=== PATIENT | female | born 1995 | race American Indian/Alaskan Native ===

== ENCOUNTER 2017-07-11 15:53 | Inpatient (IN) | payer MEDICAID, OTHER ==
[2017-07-11 15:54] VITALS: BMI 28.8
[2017-07-11] MEDS ORDERED: Sodium Chloride 0.9% 500 ML IV STA (16:26)
[2017-07-11 17:03] LABS: BASO # 0.03 K/mm3 (0.0-2.0); BASO % 0.8 % (0.0-3.0); EOS % 0.8 % (1.5-5.0); GRAN # 1.5 (1.4-6.5); GRAN % 40.7 % (50.0-68.0); HEMATOCRIT 37.7 % (36.0-48.0); LYMPH # 1.9 (1.2-3.4); LYMPH % 50.9 % (22.0-35.0); MEAN CELL VOLUME 85.7 fl (80.0-105.0); MEAN CORPUSCULAR HEMOGLOBIN 28.4 pg (25.0-35.0); MEAN CORPUSCULAR HGB CONC 33.2 g/dl (31.0-37.0); MEAN PLATELET VOLUME 9.7 fl (7.0-11.0); MONO # 0.3 (0.1-0.6); MONO % 6.8 % (1.0-6.0); RED CELL DISTRIBUTION WIDTH 12.6 % (11.5-14.5); WHITE BLOOD COUNT 3.7 10^3/ul (4.5-11.0)
[2017-07-11 17:09] LABS: PH,URINE 6.5 (4.7-8.0); URINE APPEARANCE CLEAR (CLEAR); URINE BILIRUBIN NEGATIVE (NEGATIVE); URINE BLOOD NEGATIVE (NEGATIVE); URINE COLOR YELLOW (YELLOW); URINE GLUCOSE (UA) NEGATIVE (NEGATIVE); URINE KETONE TRACE mg/dL (NEGATIVE); URINE LEUKOCYTE ESTERASE NEGATIVE Leu/uL (NEGATIVE); URINE PROTEIN NEGATIVE mg/dL (<30 mg/dL); URINE UROBILINOGEN 0.2 E.U./dL (<1 E.U./dL)
[2017-07-11 17:10] LABS: ALB/GLOB RATIO 1.2 (1.1-1.8); ALKALINE PHOSPHATASE 61 U/L (38-126); ALT/SGPT 20 U/L (7-56); AST/SGOT 22 U/L (14-36); BILIRUBIN,TOTAL 0.4 mg/dL (0.2-1.3); BLOOD UREA NITROGEN 10 mg/dL (7-21); CALCIUM 9.6 mg/dL (8.4-10.5); CARBON DIOXIDE 26 mmol/L (21-33); CHLORIDE 108 mmol/L (98-107); GFR AFRICAN-AMERICAN > 60; GLUCOSE,RANDOM 88 mg/dL (70-110); POTASSIUM 3.8 mmol/L (3.6-5.0); SODIUM 143 mmol/L (132-148)
[2017-07-11 17:28] VITALS: O2SAT 100
--- NOTE | 2017-07-11 20:27 | ED PDOC ---
Arrival/HPI - General Chief Complaint: Psychiatric Evaluation Time Seen by Provider: 07/11/17 16:00 Historian: Patient - History of Present Illness Narrative History of Present Illness (Text): 07/11/17 20:19 21-year-old female presents today with depression and suicidal ideation. Patient states she took a handful approximately 14-20 220 mg naproxen in an attempt to end her life. Patient states she's been very depressed for a long time. She denies fevers or chills. No chest pain or shortness of breath. Denies abdominal pain. No nausea or vomiting. No dizziness or weakness. Denies urinary symptoms. Denies . Patient states she occasionally will take Motrin at home for pain. Patient states she did not take any Motrin today. Patient states he only medication that she took was the naproxen. Time/Duration: 1/2 hour Past Medical History - Provider Review Nursing Documentation Reviewed: Yes - Travel History Have you recently traveled outside [place] w/in the past 3 mons?: No - Cardiac Hx Cardiac Disorders: No - Pulmonary Hx Respiratory Disorders: No - Neurological Hx Neurological Disorder: No - HEENT Hx HEENT Disorder: No - Renal Hx Renal Disorder: No - Hematological/Oncological Hx Blood Disorders: No - Integumentary Hx Dermatological Disorder: No - Musculoskeletal/Rheumatological Hx Musculoskeletal Disorders: Yes Hx Herniated Disk: Yes (L4 & L5) - Gastrointestinal Hx Gastrointestinal Disorders: No - Genitourinary/Gynecological Hx Genitourinary Disorders: No - Psychiatric Hx Substance Use: No - Suicidal Assessment Suicide Risk Precautions: Suicide Precautions Family/Social History - Physician Review Nursing Documentation Reviewed: Yes Family/Social History: Unknown Family HX Smoking Status: Never Smoked Hx Alcohol Use: No Hx Substance Use: No Allergies/Home Meds Allergies/Adverse Reactions: Allergies nut - unspecified Allergy (Verified 07/11/17 16:28) SWELLING Home Medications: Home Meds Medication Instructions Recorded Confirmed Acetaminophen [Tylenol 325mg tab] 325 mg PO Q6 PRN 07/11/17 07/11/17 Ibuprofen [Motrin Tab] 800 mg PO Q6 PRN 07/11/17 07/11/17 Review of Systems - Review of Systems Constitutional: absent: Fatigue, Fevers Respiratory: absent: SOB, Cough Cardiovascular: absent: Chest Pain, Palpitations Gastrointestinal: absent: Abdominal Pain, Nausea, Vomiting Genitourinary Female: absent: Dysuria, Frequency, Hematuria Musculoskeletal: absent: Arthralgias, Back Pain, Neck Pain Skin: absent: Rash, Pruritis Neurological: absent: Headache, Dizziness Psychiatric: Depression, Suicidal Ideation. absent: Anxiety Physical Exam Vital Signs Reviewed: Yes Vital Signs Temp Pulse Resp BP Pulse Ox 07/11/17 17:28 56 L 13 129/71 100 07/11/17 16:17 98.6 F 127 H 17 109/78 98 Temperature: Afebrile Blood Pressure: Normal Pulse: Tachycardic Respiratory Rate: Normal Appearance: Positive for: Well-Appearing, Non-Toxic, Comfortable Pain Distress: None Mental Status: Positive for: Alert and Oriented X 3 - Systems Exam Head: Present: Atraumatic Mouth: Present: Moist Mucous Membranes Neck: Present: Normal Range of Motion Respiratory/Chest: Present: Clear to Auscultation, Good Air Exchange. No: Respiratory Distress, Accessory Muscle Use Cardiovascular: Present: Regular Rate and Rhythm, Normal S1, S2. No: Murmurs Abdomen: Present: Normal Bowel Sounds. No: Tenderness, Distention, Peritoneal Signs, Rebound, Guarding Back: Present: Normal Inspection Upper Extremity: Present: Normal ROM, NORMAL PULSES, Neurovascularly Intact, Other (superficial abrasions to left volar wrist) Neurological: Present: GCS=15 Skin: Present: Warm, Dry, Normal Color. No: Rashes Psychiatric: Present: Alert, Oriented x 3 Medical Decision Making ED Course and Treatment: 07/11/17 20:29 Patient is nontoxic well-appearing in no distress vital signs are stable. poison control contacted; supportive measures. pt placed on 1:1 for Suicidal ideation. CBC WNL CMP WNL Tylenol WNL Salicylate WNL Alcohol level WNL Urine drug screen + marijuana UA; wnl cxr: wnl ekg sinus bradycardia with sinus arrhythmia at 59 b/m no st elevations pt has been observed in the Er; no GI symptoms, no complaints. no cp or sob. no dizziness or weakness. abrasions to left forearm have been cleaned, bacitracin and dressing applied. pt is medically cleared for PES evaluation Patient was seen and evaluated by PES screener: antelmo pt signed voluntarily for Psych admission Impression; major depression admit to behavioral health floor - Lab Interpretations Lab Results: 07/11/17 16:30 07/11/17 16:30 Lab Results 07/11/17 16:45: Urine Opiates Screen Negative, Urine Methadone Screen Negative, Ur Barbiturates Screen Negative, Ur Phencyclidine Scrn Negative, Ur Amphetamines Screen Negative, U Benzodiazepines Scrn Negative, U Oth Cocaine Metabols Negative, U Cannabinoids Screen Positve 07/11/17 16:45: Urine Color Yellow, Urine Appearance Clear, Urine pH 6.5, Ur Specific [place] 1.025, Urine Protein Negative, Urine Glucose (UA) Negative, Urine Ketones Trace H, Urine Blood Negative, Urine Nitrate Negative, Urine Bilirubin Negative, Urine Urobilinogen 0.2, Ur Leukocyte Esterase Negative 07/11/17 16:30: Alcohol, Quantitative < 10 07/11/17 16:30: Salicylates < 1 L, Acetaminophen < 10.0 L 07/11/17 16:30: Sodium 143, Potassium 3.8, Chloride 108 H, Carbon Dioxide 26, Anion Gap 13, BUN 10, Creatinine 0.7, Est GFR ( Amer) > 60, Est GFR (Non- Af Amer) > 60, Random Glucose 88, Calcium 9.6, Total Bilirubin 0.4, AST 22, ALT 20, Alkaline Phosphatase 61, Total Creatine Kinase 84, Total Protein 8.0, Albumin 4.3, Globulin 3.7, Albumin/Globulin Ratio 1.2 07/11/17 16:30: WBC 3.7 L, RBC 4.40, Hgb 12.5, Hct 37.7, MCV 85.7, MCH 28.4, MCHC 33.2, RDW 12.6, Plt Count 284, MPV 9.7, Gran % 40.7 L, Lymph % (Auto) 50.9 H, [place] % (Auto) 6.8 H, Eos % (Auto) 0.8 L, Baso % (Auto) 0.8, Gran # 1.50, Lymph # 1.9, [place] # 0.3, Eos # 0.0, Baso # 0.03 - RAD Interpretation Radiology Orders: 07/11/17 16:27 CHEST PORTABLE [RAD] Stat - Medication Orders Current Medication Orders: Discontinued Medications Sodium Chloride (Sodium Chloride 0.9%) 500 mls @ 1,000 mls/hr IV .Q30M STA Stop: 07/11/17 16:55 Last Admin: 07/11/17 17:46 Dose: 1,000 mls/hr eMAR Start Stop Document 07/11/17 17:46 MR (Rec: 07/11/17 17:46 MR [id number]) Intravenous Solution Start Date 07/11/17 Start Time 17:46 End Date 07/11/17 End time 18:16 Total Infusion Time 30 Disposition/Present on Arrival - Present on Arrival Any Indicators Present on Arrival: No History of DVT/PE: No History of Uncontrolled Diabetes: No Urinary Catheter: No History of Decub. Ulcer: No History Surgical Site Infection Following: None - Disposition Have Diagnosis and Disposition been Completed?: Yes Diagnosis: Major depression Disposition: HOSPITALIZED Disposition Time: 21:34 Patient Plan: Admission Condition: FAIR Referrals: PCP,NO [Primary Care Provider] - Follow up with primary Forms: [employer] (Albanian)
[2017-07-11] MEDS ORDERED: Magnesium Hydroxide Susp 30 ml UD PO PRN (22:43)
[2017-07-11] MEDS ORDERED: Alum-Mag Hydrox-Simethicone Susp (30 mL) PO PRN (22:43)
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
[2017-07-12 07:51] LABS: GLUCOSE,RANDOM 85 mg/dL (70-110)
[2017-07-12 07:52] LABS: ALB/GLOB RATIO 1.2 (1.1-1.8); ALKALINE PHOSPHATASE 55 U/L (38-126); ALT/SGPT 22 U/L (7-56); AST/SGOT 17 U/L (14-36); BILIRUBIN,TOTAL 0.4 mg/dL (0.2-1.3); BLOOD UREA NITROGEN 9 mg/dL (7-21); CALCIUM 9.3 mg/dL (8.4-10.5); CARBON DIOXIDE 22 mmol/L (21-33); CHLORIDE 109 mmol/L (98-107); CHOLESTEROL 147 mg/dL (130-200); GFR AFRICAN-AMERICAN > 60; POTASSIUM 3.8 mmol/L (3.6-5.0); SODIUM 139 mmol/L (132-148); TOTAL PROTEIN 7.1 g/dL (5.8-8.3)
--- NOTE | 2017-07-12 09:00 | RAD ---
HISTORY: pes eval COMPARISON: None available. TECHNIQUE: Chest, one view. FINDINGS: LUNGS: No focal consolidation. Please note that chest x-ray has limited sensitivity for the detection of pulmonary masses. PLEURA: No significant pleural effusion identified. No definite pneumothorax . CARDIOVASCULAR: The cardiomediastinal silhouette appears within normal limits of size. OSSEOUS STRUCTURES: No acute osseous abnormality identified. VISUALIZED UPPER ABDOMEN: Unremarkable. OTHER FINDINGS: None. IMPRESSION: No focal consolidation, significant pleural effusion, or definite pneumothorax identified.
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
[2017-07-12 16:49] LABS: FSH 4.4 mIU/mL
[2017-07-12 16:53] LABS: TESTOSTERONE 29.2 ng/mL
--- NOTE | 2017-07-12 16:54 | CARD ---
APPROVED REPORT EKG Measurement Heart [id number] <Conclusion> Sinus bradycardia with sinus arrhythmia Otherwise normal ECG
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
[2017-07-13 09:08] LABS: SEX HORMONE BINDING GLOB 40 nmol/L (17-124)
[2017-07-13 10:55] LABS: DHEA SULFATE 69 mcg/dL (18-391)
--- NOTE | 2017-07-13 12:41 | PCM.PYCHPN ---
Psychiatric Progress Note - Psychiatric Progress Note Patient seen today, length of contact: 30min Patient Chief Complaint: "I feel like I am being punished..." Problems Identified/Issues Discussed: Suicide/ homicide prevention, past psychiatric h/o, current psychiatric symptoms , medical problems, risk/benefits and alternatives of medications, medications compliance, coping strategies, substance abuse h/o, relapse prevention, importance of follow up with psychiatrist and therapist, discharge plan. Medical Problems: pt reported being healthy, but pt has facial hair man like distribution prolactin level is elevated will call county supervisor Diagnostic Results: 07/11/17 16:30 07/12/17 07:00 Lab Results 07/12/17 07:00: Sex Hormone Bind Glob 40, DHEA Sulfate 69 07/12/17 07:00: FSH 3rd Generation 4.4, Luteinizing Hormone 3.1, Prolactin 20.1 H, Testosterone Level 29.2 07/12/17 07:00: Hemoglobin A1c 5.3 07/12/17 07:00: Sodium 139, Potassium 3.8, Chloride 109 H, Carbon Dioxide 22, Anion Gap 13, BUN 9, Creatinine 0.6 L, Est GFR ( Amer) > 60, Est GFR (Non -Af Amer) > 60, Random Glucose 85, Calcium 9.3, Total Bilirubin 0.4, AST 17, ALT 22, Alkaline Phosphatase 55, Total Protein 7.1, Albumin 3.9, Globulin 3.3, Albumin/Globulin Ratio 1.2, Triglycerides 105, Cholesterol 147, LDL Cholesterol Direct 80, HDL Cholesterol 35 07/12/17 07:00: TSH 3rd Generation 1.98 07/11/17 16:45: Urine Opiates Screen Negative, Urine Methadone Screen Negative, Ur Barbiturates Screen Negative, Ur Phencyclidine Scrn Negative, Ur Amphetamines Screen Negative, U Benzodiazepines Scrn Negative, U Oth Cocaine Metabols Negative, U Cannabinoids Screen Positve 07/11/17 16:45: Urine Color Yellow, Urine Appearance Clear, Urine pH 6.5, Ur Specific [place] 1.025, Urine Protein Negative, Urine Glucose (UA) Negative, Urine Ketones Trace H, Urine Blood Negative, Urine Nitrate Negative, Urine Bilirubin Negative, Urine Urobilinogen 0.2, Ur Leukocyte Esterase Negative 07/11/17 16:30: Alcohol, Quantitative < 10 07/11/17 16:30: Salicylates < 1 L, Acetaminophen < 10.0 L 07/11/17 16:30: Sodium 143, Potassium 3.8, Chloride 108 H, Carbon Dioxide 26, Anion Gap 13, BUN 10, Creatinine 0.7, Est GFR ( Amer) > 60, Est GFR (Non- Af Amer) > 60, Random Glucose 88, Calcium 9.6, Total Bilirubin 0.4, AST 22, ALT 20, Alkaline Phosphatase 61, Total Creatine Kinase 84, Total Protein 8.0, Albumin 4.3, Globulin 3.7, Albumin/Globulin Ratio 1.2 07/11/17 16:30: WBC 3.7 L, RBC 4.40, Hgb 12.5, Hct 37.7, MCV 85.7, MCH 28.4, MCHC 33.2, RDW 12.6, Plt Count 284, MPV 9.7, Gran % 40.7 L, Lymph % (Auto) 50.9 H, [place] % (Auto) 6.8 H, Eos % (Auto) 0.8 L, Baso % (Auto) 0.8, Gran # 1.50, Lymph # 1.9, [place] # 0.3, Eos # 0.0, Baso # 0.03 Vital Signs Temp Pulse Resp BP Pulse Ox 07/13/17 07:00 97.3 F L 66 18 112/65 07/12/17 16:00 66 114/68 07/12/17 07:57 97.7 F 58 L 17 121/62 07/11/17 23:48 17 07/11/17 21:42 98.6 F 58 L 20 113/67 100 07/11/17 21:30 72 18 120/68 100 07/11/17 17:28 56 L 13 129/71 100 07/11/17 16:17 98.6 F 127 H 17 109/78 98 DSM 5 Symptoms Update: shortly patient is 21 year old, cheema female, not known previous psychiatric history, self reported history of at least 4 suicidal attempts, most recent was at the day of admission to this unit, was admitted for evaluation of depressive symptoms, inability to function, feeling of hopelessness. Patient was seen and examined today at the TV area, pt was superficially pleasant/cooperative, at the same time pt refused to take medication, not socializing with others. pt said that she feels that she does not need to be in the hospital and "I feel like I am being punished", pt has no insight into her action, pt is overdosed on naproxen and wrote a good by letter, confirmed that it was suicidal act yesterday. pt said "It was not my choice to come to the hospital, my cousin called 911". pt was educated about meds, about treatment plan, about 48 hr notice because pt requested to be discharged. as per staff pt does not have any behavioral problems, self isolating, not socializing with others. Impression: r/o MDD r/o bipolar disorder r/o borderline personality d/o r/o PTSD cannabis abuse Medication Change: No (pt was not taking meds) Medical Record Reviewed: Yes Consults ordered or reviewed: medical consult appreciated endocrinology consult appreciated Mental Status Examination - Cognitive Function Orientation: Person, Place, Situation, Time Memory: Intact Attention: WNL Concentration: WNL Association: WN Fund of Knowledge: WNL - Mood Mood: Depressed - Affect Affect: Flat - Formal Thought Process Formal Thought Process: No Impairment - Suicidal Ideation Suicidal Ideation: No - Homicidal Ideation Homicidal Ideation: No Goal/Treatment Plan - Goal/Treatment Plan Need for Continued Stay: Remain at risks for inpatient hospitalization, Severe depression anxiety, Discharge may exacerbated symptoms, Severe functional impairment Progress Toward Problem(s) and Goals/Treatment Plan: Milieu/structure/supportive therapy Medical consult appreciated, see medical team note for more detailed info, discussed with endocrinology was called paxil was started by psychiatrist security incident response specialist 10mg po hs for depression and anxiety sonata as needed for insomnia SW consultation for discharge plan and social issues collaterals from pt's cousin will be obtained if pt will give consent for it Med management Family involvement Follow up on labs Will monitor closely SW evaluation for d/c planning Pt was educated about risk/benefits and alternatives of medications, coping strategies (safety plan, suicide prevention), relapse prevention, importance of follow up with psychiatrist and therapist, stay away from drugs/alcohol/smoking Estimated Date of D/C: 07/16/17
--- NOTE | 2017-07-14 02:28 | CON ---
ENDOCRINOLOGY CONSULT DATE: LOCATION: In room 508. HISTORY OF PRESENT ILLNESS: This is a 21-year-old female with major depression presenting here with suicidal ideation with an apparent drug overdose and is now being referred for endocrine evaluation because of a slightly elevated prolactin level. PAST MEDICAL HISTORY: Essentially unremarkable from the medical viewpoint, history of generalized anxiety and depression, history of lumbar disk disease and lower back pain. FAMILY HISTORY: Possible hypertension and heart disease. SOCIAL HISTORY: The patient has a supportive family. No known substance use. REVIEW OF SYSTEMS: As mentioned above. Admits to generalized body weakness with easy fatigability and tiredness and suboptimal energy level. Also admits to bifrontal headaches with no visual changes. No chest pains. No palpitations. No PND. Her oral intake has been variable with nausea, dyspepsia, and vague upper abdominal pain. No recent alterations of bowel and urinary patterns. PHYSICAL EXAMINATION: GENERAL: This is an average-built female, in no apparent distress. VITAL SIGNS: Blood pressure of 140/80, pulse of 60 beats per minute and regular, temperature is 98 and respirations are 20. Height is 5 feet 7 inches and weight is 175 pounds. HEENT: Head normocephalic. Eyes anicteric with pink conjunctivae. Funduscopy not possible at this time. Ears, nose and throat otherwise normal. NECK: Supple. Thyroid gland is normal in size. No carotid bruits or cervical adenopathy. CARDIOPULMONARY: Adynamic precordium. S1 and S2 is rapid and regular. LUNGS: Clear to auscultation. ABDOMEN: Flat, soft with positive bowel sounds. EXTREMITIES: No peripheral edema. Pulses are +2 bilaterally. LABORATORY DATA: Her chemistries showed sodium 139, potassium 3.8, chloride 109, CO2 of 22, glucose 85 and creatinine 0.6. Her prolactin level is 20.1 which is barely above the normal and insignificant at this time, especially with underlying major depression. FSH is 12.4, LH is 3.1, and . ASSESSMENT: This is a 21-year-old female with major depression and presenting here with suicidal ideations and apparent drug overdose and is now being referred for endocrine evaluation and management. She remains clinically and biochemically euthyroid at this time. I would expect elevation of the prolactin level especially anxiety and depression with concomitant intake of antidepressants as noted. We will obtain serial thyroid studies and if the aforementioned persists, then we will start her on low dose dopamine agonist medications but for now there is no indication. We will obtain serial chemistries and supplement accordingly as needed. Mami Heredia MD
[2017-07-14 07:19] VITALS: RESP 20
--- NOTE | 2017-07-14 15:36 | PCM.PYCHPN ---
Psychiatric Progress Note - Psychiatric Progress Note Patient seen today, length of contact: 30min Patient Chief Complaint: "I feel so happy to be alive, I've got another chance" Problems Identified/Issues Discussed: Suicide/ homicide prevention, past psychiatric h/o, current psychiatric symptoms , medical problems, risk/benefits and alternatives of medications, medications compliance, coping strategies, substance abuse h/o, relapse prevention, importance of follow up with psychiatrist and therapist, discharge plan. Medical Problems: pt reported being healthy, but pt has facial hair man like distribution prolactin level is elevated will call visiting housekeeper Diagnostic Results: 07/11/17 16:30 07/12/17 07:00 Lab Results 07/12/17 07:00: Sex Hormone Bind Glob 40, DHEA Sulfate 69 07/12/17 07:00: FSH 3rd Generation 4.4, Luteinizing Hormone 3.1, Prolactin 20.1 H, Testosterone Level 29.2 07/12/17 07:00: Hemoglobin A1c 5.3 07/12/17 07:00: Sodium 139, Potassium 3.8, Chloride 109 H, Carbon Dioxide 22, Anion Gap 13, BUN 9, Creatinine 0.6 L, Est GFR ( Amer) > 60, Est GFR (Non -Af Amer) > 60, Random Glucose 85, Calcium 9.3, Total Bilirubin 0.4, AST 17, ALT 22, Alkaline Phosphatase 55, Total Protein 7.1, Albumin 3.9, Globulin 3.3, Albumin/Globulin Ratio 1.2, Triglycerides 105, Cholesterol 147, LDL Cholesterol Direct 80, HDL Cholesterol 35 07/12/17 07:00: TSH 3rd Generation 1.98 07/11/17 16:45: Urine Opiates Screen Negative, Urine Methadone Screen Negative, Ur Barbiturates Screen Negative, Ur Phencyclidine Scrn Negative, Ur Amphetamines Screen Negative, U Benzodiazepines Scrn Negative, U Oth Cocaine Metabols Negative, U Cannabinoids Screen Positve 07/11/17 16:45: Urine Color Yellow, Urine Appearance Clear, Urine pH 6.5, Ur Specific [place] 1.025, Urine Protein Negative, Urine Glucose (UA) Negative, Urine Ketones Trace H, Urine Blood Negative, Urine Nitrate Negative, Urine Bilirubin Negative, Urine Urobilinogen 0.2, Ur Leukocyte Esterase Negative 07/11/17 16:30: Alcohol, Quantitative < 10 07/11/17 16:30: Salicylates < 1 L, Acetaminophen < 10.0 L 07/11/17 16:30: Sodium 143, Potassium 3.8, Chloride 108 H, Carbon Dioxide 26, Anion Gap 13, BUN 10, Creatinine 0.7, Est GFR ( Amer) > 60, Est GFR (Non- Af Amer) > 60, Random Glucose 88, Calcium 9.6, Total Bilirubin 0.4, AST 22, ALT 20, Alkaline Phosphatase 61, Total Creatine Kinase 84, Total Protein 8.0, Albumin 4.3, Globulin 3.7, Albumin/Globulin Ratio 1.2 07/11/17 16:30: WBC 3.7 L, RBC 4.40, Hgb 12.5, Hct 37.7, MCV 85.7, MCH 28.4, MCHC 33.2, RDW 12.6, Plt Count 284, MPV 9.7, Gran % 40.7 L, Lymph % (Auto) 50.9 H, [place] % (Auto) 6.8 H, Eos % (Auto) 0.8 L, Baso % (Auto) 0.8, Gran # 1.50, Lymph # 1.9, [place] # 0.3, Eos # 0.0, Baso # 0.03 Vital Signs Temp Pulse Resp BP Pulse Ox 07/13/17 07:00 97.3 F L 66 18 112/65 07/12/17 16:00 66 114/68 07/12/17 07:57 97.7 F 58 L 17 121/62 07/11/17 23:48 17 07/11/17 21:42 98.6 F 58 L 20 113/67 100 07/11/17 21:30 72 18 120/68 100 07/11/17 17:28 56 L 13 129/71 100 07/11/17 16:17 98.6 F 127 H 17 109/78 98 DSM 5 Symptoms Update: shortly patient is 21 year old, cheema female, not known previous psychiatric history, self reported history of at least 4 suicidal attempts, most recent was at the day of admission to this unit, was admitted for evaluation of depressive symptoms, inability to function, feeling of hopelessness. Patient was seen and examined today the treatment team meeting, patient presented better, patient reported that she had good session with therapist, patient reported that she is willing to have follow-up appointment with a therapist and psychiatrist but she does not want to take any medication at this time. Patient seems to be sincerely remorseful for her suicidal act, reported " I feel so happy to be alive, I've got another chance", pt adamantly denied thoughts of harming herself or others. As per staff patient attends groups, affect is brighter, started to socialize with others. patient submitted 48 hour notice yesterday, most likely patient will be discharged tomorrow. Patient does not meet the criteria for [facility] screening process. as per staff pt does not have any behavioral problems, self isolating, not socializing with others. Impression: r/o MDD r/o bipolar disorder r/o borderline personality d/o r/o PTSD cannabis abuse Medication Change: No (he shouldn't was taking only sleeping pill) Medical Record Reviewed: Yes Consults ordered or reviewed: medical consult appreciated endocrinology consult appreciated Mental Status Examination - Cognitive Function Orientation: Person, Place, Situation, Time Memory: Intact Attention: WNL Concentration: WNL Association: WNL Fund of Knowledge: WNL - Mood Mood: Depressed ("I feel much better") - Affect Affect: Constricted (reactive mood congruent) - Speech Speech: Appropriate - Formal Thought Process Formal Thought Process: No Impairment - Suicidal Ideation Suicidal Ideation: No - Homicidal Ideation Homicidal Ideation: No Goal/Treatment Plan - Goal/Treatment Plan Need for Continued Stay: Remain at risks for inpatient hospitalization, Severe depression anxiety, Discharge may exacerbated symptoms, Severe functional impairment Progress Toward Problem(s) and Goals/Treatment Plan: Milieu/structure/supportive therapy Medical consult appreciated, see medical team note for more detailed info, discussed with endocrinology was called, no further recommendations paxil was started by psychiatrist multimedia educational specialist 10mg po hs for depression and anxiety sonata as needed for insomnia SW consultation for discharge plan and social issues collaterals from pt's cousin will be obtained if pt will give consent for it Med management Family involvement Follow up on labs Will monitor closely SW evaluation for d/c planning Pt was educated about risk/benefits and alternatives of medications, coping strategies (safety plan, suicide prevention), relapse prevention, importance of follow up with psychiatrist and therapist, stay away from drugs/alcohol/smoking Estimated Date of D/C: 07/15/17
--- NOTE | 2017-07-15 01:16 | PN ---
ENDOCRINOLOGY FOLLOWUP NOTE DATE: LOCATION: In room 508, psychiatry. SUBJECTIVE: This is a 22-year-old female with recent major depression and suicidal ideation, and is now being followed closely at the psychiatric unit and also is being referred for evaluation of mild hyperprolactinemia as noted. The latest prolactin level is 20.1 with an LH of 3.1 and also an FSH of 4.4. Her sex hormone binding globulin is 40, TSH is 1.98, the latest chemistry shows a BUN of 9, sodium 139, potassium 3.8, chloride 109, CO2 of 22, glucose 85, creatinine 0.8. So at this time, we will continue the same excellent medical and psychiatric management and will be awaiting the repeat prolactin level for completion and also documentation. With very mild elevation, we expect this kind of degree of elevation in major depression and also from the underlying psychotropic medications thereof. PLAN OF MANAGEMENT: We will await repeat prolactin level and actually hold off on any kind of medical or endocrine intervention as the transient revision is something self-limiting and should improve accordingly over time. We will obtain serial chemistries and supplement accordingly as needed. We will hold off the consideration for initiation of bromocriptine at this point as the elevation quite insignificant as noted. We will follow and advice accordingly. Mami Heredia MD
[2017-07-15 07:10] VITALS: BP 100/55; PULSE 60; TEMP 97.8
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
== END 2017-07-15 13:20 | disposition home or self-care (01) | DRG 881 ==
LOC: EDSEX → ED 15:53 → ERH 21:34 → PSYC 22:07
PROVIDERS: ADMIT Psychiatry & Neurology Psychiatry; ATTEND Psychiatry & Neurology Psychiatry
DX: F32.9 Major depressive disorder, single episode, unspecified (principal); F12.10 Cannabis abuse, uncomplicated; L68.0 Hirsutism

== ENCOUNTER 2018-03-19 21:22 | Emergency (ER) | payer BC, MEDICAID ==
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
[2018-03-19 21:47] VITALS: BP 106/72; PULSE 80; RESP 17; TEMP 98; O2SAT 99; BMI 25.5
[2018-03-19] MEDS ORDERED: Tmp-Smz 800 mg-160 mg DS Tab PO STA (21:51)
== END 2018-03-19 22:25 | disposition home or self-care (01) ==
LOC: ED 21:22
DX: L03.012 Cellulitis of left finger (principal)